=== PATIENT | female | born 1990 | race Caucasian/White ===

== ENCOUNTER 2020-02-21 18:04 | Emergency (ER) | payer MEDICAID, OTHER ==
[~2020-02-21] VITALS: Ht 157.5 cm; Wt 100.0 kg
[2020-02-21 18:36] VITALS: BP 150/77
[2020-02-21] MEDS ORDERED: fentaNYL PF VIAL 100 MCG/2 ML VIAL IVP ONE (20:00)
--- NOTE | 2020-02-21 20:01 | PHYS DOC ---
Past Medical History Past Medical History: No Pertinent History Past Surgical History: No Surgical History Smoking Status: Never Smoker Alcohol Use: None Drug Use: None General Adult EDM: Chief Complaint: COUGH HPI: HPI: Patient is a 29 year old female who presents with left chest sharp pain that started this afternoon. She states that it does get worse with movement of that left arm. She states the left arm feels heavy. She rates her pain a 7 out of 10. She states she does have anxiety and she has been having a lot of anxiety and stress lately. She states that her mom, her dad, and her brother all have COVID she is very worried and nervous about that. She stated that her began having cold-like symptoms and was tested but he was negative. She states she also has 2 small children at home. She states she is just very anxious and stressed lately. She does have alprazolam at home that she takes for her anxiety when needed. She states she did not take any today but she did take some yesterday and it does help. She rates her pain a 7 out of 10. Patient denies fever, nausea, vomiting, shortness of breath, headache, dizziness, vision changes, numbness or tingling, abdominal pain, back pain. Patient states she does have a cough but she has not been coughing up any mucus. She states she has no other past medical history and takes no other medications daily. She denies being a smoker. Review of Systems: Review of Systems: Constitutional: Denies fever or chills. [] Eyes: Denies change in visual acuity. [] HENT: Denies nasal congestion or sore throat. [] Respiratory: cough or denies shortness of breath. [] Cardiovascular: chest pain or denies edema. [] GI: Denies abdominal pain, nausea, vomiting, bloody stools or diarrhea. [] : Denies dysuria. [] Musculoskeletal: Denies back pain or joint pain. [] Integument: Denies rash. [] Neurologic: Denies headache, focal weakness or sensory changes. [] Endocrine: Denies polyuria or polydipsia. [] Lymphatic: Denies swollen glands. [] Psychiatric: Denies depression or anxiety. [] Heart Score: HEART Score for Chest Pain: HEART Score for Chest Pain Response (Comments) Value History Slighlty/Non-Suspicious 0 ECG Normal 0 Age < 45 0 Risk Factors 1 or 2 Risk Factors 1 Troponin < Normal Limit 0 Total 1 Risk Factors: Risk Factors: DM, Current or recent (<one month) smoker, HTN, HLP, family history of CAD, obesity. Risk Scores: Score 0 - 3: 2.5% MACE over next 6 weeks - Discharge Home Score 4 - 6: 20.3% MACE over next 6 weeks - Admit for Clinical Observation Score 7 - 10: 72.7% MACE over next 6 weeks - Early Invasive Strategies Current Medications: Current Medications Medications (Trade) Dose Ordered Sig/Mariela Start Time Stop Time Status Last Admin Dose Admin Fentanyl Citrate (Fentanyl 2ml Vial) 50 mcg 1X ONCE 02/21/20 20:00 02/21/20 20:01 Allergies: Allergies: Allergies Coded Allergies Type Severity Reaction Last Updated Verified Penicillins Allergy Intermediate rash 07/07/16 Yes Physical Exam: PE: Constitutional: Well developed, well nourished, no acute distress, non-toxic appearance. [] HENT: Normocephalic, atraumatic, bilateral external ears normal, oropharynx moist, no oral exudates, nose normal. [] Eyes: PERRLA, EOMI, conjunctiva normal, no discharge. [] Neck: Normal range of motion, no tenderness, supple, no stridor. [] Cardiovascular:Heart rate regular rhythm, no murmur [] Lungs & Thorax: Bilateral breath sounds clear to auscultation [] Abdomen: Bowel sounds normal, soft, no tenderness, no masses, no pulsatile masses. [] Skin: Warm, dry, no erythema, no rash. [] Back: No tenderness, no CVA tenderness. [] Extremities: No tenderness, no cyanosis, no clubbing, ROM intact, no edema. [] Neurologic: Alert and oriented X 3, normal motor function, normal sensory function, no focal deficits noted. [] Psychologic: Affect normal, judgement normal, mood normal. Normal physical exam [] Current Patient Data: Vital Signs: Vital Signs Date Time Temp Pulse Resp B/P (MAP) Pulse Ox O2 Delivery O2 Flow Rate FiO2 02/21/20 18:36 99.0 102 17 150/77 (101) 100 Room Air 99.0 EKG: EK and read by Dr Segura as sinus rhythm and no STEMI[] Radiology/Procedures: Radiology/Procedures: [] Impression: [facility] [address] [place] [address] IMAGING REPORT Signed PATIENT: KAPIL VARMA I ACCOUNT: [id number] : 1990 LOCATION: ER AGE: 29 SEX: F EXAM STATUS: PRE ER ORD. PHYSICIAN: ADAN RUELAS APRN REASON: cough PROCEDURE: PORTABLE CHEST 1V INDICATION: Reason: cough / Spl. Instructions: / History: COMPARISON: None. FINDINGS: Single view of chest obtained. Hypoexpanded exam without focal airspace consolidation. Cardiac silhouette is prominent in size. IMPRESSION: * No definite focal airspace consolidation. * Cardiac silhouette is prominent in size. Electronically signed by: Sergey Paulino MD (02/21/2020 8:25 PM) [id number] DICTATED and SIGNED BY: SERGEY PAULINO MD DATE: 02/21/202024 Course & Med Decision Making: Course & Med Decision Making Pertinent Labs and Imaging studies reviewed. (See chart for details) COVID-19 CRITERIA: The patient was evaluated during the global COVID-19 pandemic, and that diagnosis was suspected/considered upon their initial pre sentation. Their evaluation, treatment and testing was consistent with current guidelines for patients who present with complaints or symptoms that may be related to COVID-19. See HPI. Alert and oriented x4. Ambulatory with a steady gait. Lungs are clear to auscultation all lobes. Skin pink warm and dry. Speaks in full clear sentences. Vital signs within normal limits. Abdomen soft and nontender. No extremity edema. No calf tenderness. She is hemoglobin is 7.9 and she has a nemia. Patient states that when she was she did have to take iron. She states she does have heavy periods. Patient is not symptomatic. Patient will begin taking [id number] iron and Colace. She will follow-up with Dr. Metz for her heavy periods. I discussed this patient findings and care plan with Dr Segura. [] Lc Disclaimer: Dragfederico Disclaimer: This electronic medical record was generated, in whole or in part, using a voice recognition dictation system. Departure Departure Impression: Primary Impression: Anemia Qualified Codes: D64.9 - Anemia, unspecified Additional Impression: Nonspecific chest pain Disposition: HOME, SELF-CARE Condition: STABLE Referrals: ELIZABETH ROYAL MD (PCP) CHIN METZ Jr, MD Patient Instructions: Anemia, Nonspecific-Brief Additional Instructions: Follow-up with Dr. ying about your heavy periods. Begin taking over the counter iron as prescribed and take it with food. Take the stool softener such as colace also because iron can make you constipated. Remember that iron can also make your stools dark in color. Justicifation of Admission Dx: Justifications for Admission: Justification of Admission Dx: N/A COVID-19 Assessment: COVID-19 Patient Risks: Age 65 or older: No Sign of co-morbidity: Yes Exp to person + for COVID: No Exp to PUI: No Travel from affected area: No Lower respiratory symptoms: Yes Fever: No Other: No PPE Use: Full PPE with N95 mask or PAPR: Yes ADAN RUELAS COMPENSATION ANALYST Feb 21, 2020 20:01
--- NOTE | 2020-02-21 20:28 | RAD ---
INDICATION: Reason: cough / Spl. Instructions: / History: COMPARISON: None. FINDINGS: Single view of chest obtained. Hypoexpanded exam without focal airspace consolidation. Cardiac silhouette is prominent in size. IMPRESSION: * No definite focal airspace consolidation. * Cardiac silhouette is prominent in size. Electronically signed by: Kristopher Sagastume MD (02/21/2020 8:25 PM) [id number]
[2020-02-21 21:19] LABS: BASO # 0.1 x10^3/uL (0.0-0.2); BASO % 1 % (0-3); EOS # 0.1 x10^3/uL (0.0-0.7); EOS % 1 % (0-3); HEMATOCRIT 25.3 % (36.0-47.0); HEMOGLOBIN 7.9 g/dL (12.0-15.5); LYMPH # 2.3 x10^3/uL (1.0-4.8); LYMPH % 18 % (24-48); MEAN CORPUSCULAR HEMOGLOBIN 20 pg (25-35); MEAN CORPUSCULAR HGB CONC 31 g/dL (31-37); MEAN CORPUSCULAR VOLUME 63 fL (79-100); MONO # 0.4 x10^3/uL (0.0-1.1); MONO % 3 % (0-9); NEUT % 78 % (31-73); PLATELET COUNT 594 x10^3/uL (140-400); RED BLOOD COUNT 4.02 x10^6/uL (3.50-5.40); RED CELL DISTRIBUTION WIDTH 18.8 % (11.5-14.5); WHITE BLOOD COUNT 12.8 x10^3/uL (4.0-11.0)
[2020-02-21 21:23] LABS: CALCIUM 8.6 mg/dL (8.5-10.1); CREATININE 0.7 mg/dL (0.6-1.0); GFR 100.4; POTASSIUM 4.3 mmol/L (3.5-5.1); PROTHROMBIN TIME PATIENT 13.2 SEC (11.7-14.0)
[2020-02-21 21:29] LABS: ALBUMIN 3.3 g/dL (3.4-5.0); ALBUMIN/GLOBULIN RATIO 0.8 (1.0-1.7); TOTAL BILIRUBIN 0.1 mg/dL (0.2-1.0); TOTAL PROTEIN 7.7 g/dL (6.4-8.2)
[2020-02-21 21:44] LABS: ANISOCYTOSIS SLIGHT; HYPOCHROMIA MARKED; MICROCYTOSIS MARKED; PLT ESTIMATE INCREASED (ADEQUATE); POIKILOCYTOSIS SLIGHT
--- NOTE | 2020-02-22 14:30 | EKG ---
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
--- NOTE | 2020-02-24 10:18 | NUR ---
IP: Informed pt of negative COVID tests. Pt verbalized understanding.
== END 2020-02-22 00:19 | disposition home or self-care (01) ==
LOC: ER 18:04
DX: D64.9 Anemia, unspecified (principal); R07.89 Other chest pain; Z20.828 Contact with and (suspected) exposure to other viral communicable diseases; F41.9 Anxiety disorder, unspecified; F43.9 Reaction to severe stress, unspecified; Z88.0 Allergy status to penicillin
CPT/HCPCS: 36415; 71045; 80053; 84484; 85025; 85379; 85610; 93005; 96374; 99285; J3010; U0003

== ENCOUNTER 2020-02-28 05:58 | Emergency (ER) | payer MEDICAID ==
[~2020-02-28] VITALS: Ht 157.5 cm; Wt 100.0 kg
--- NOTE | 2020-02-28 07:01 | PHYS DOC ---
Past Medical History Past Medical History: No Pertinent History Past Surgical History: Cholecystectomy Smoking Status: Never Smoker Alcohol Use: None Drug Use: None General Adult EDM: Chief Complaint: Congestion HPI: HPI: Patient is a 29 year old female who presents with a one-week history of cough some mild shortness of breath myalgias mild diarrhea and then a 3 to 4-day history of loss of taste. Patient son was recently diagnosed with coronavirus. Patient states she has not had a fever. Symptoms are worse with coughing and exertion. Symptoms are described as moderate in severity. Symptoms are worse with deep breaths. Review of Systems: Review of Systems: Constitutional: Denies fever or chills. [] Eyes: Denies change in visual acuity. [] HENT: Reports nasal congestion Respiratory: Reports cough reports mild shortness of breath Cardiovascular: Reports mild] GI: Has nausea and mild diarrhea : Denies dysuria. [] Musculoskeletal: Complains of myalgias Integument: Denies rash. [] Neurologic: Has mild headache but no focal weakness or sensory changes. [] Endocrine: Denies polyuria or polydipsia. [] Lymphatic: Denies swollen glands. [] Psychiatric: Denies depression or anxiety. [] Heart Score: Risk Factors: Risk Factors: DM, Current or recent (<one month) smoker, HTN, HLP, family history of CAD, obesity. Risk Scores: Score 0 - 3: 2.5% MACE over next 6 weeks - Discharge Home Score 4 - 6: 20.3% MACE over next 6 weeks - Admit for Clinical Observation Score 7 - 10: 72.7% MACE over next 6 weeks - Early Invasive Strategies Allergies: Allergies: Allergies Coded Allergies Type Severity Reaction Last Updated Verified Penicillins Allergy Intermediate rash 07/07/16 Yes Physical Exam: PE: Constitutional: Well developed, well nourished, no acute distress, non-toxic appearance. [] HENT: Normocephalic, atraumatic, bilateral external ears normal, no trismus, mild nasal congestion nose normal. [] Eyes: PERRLA, EOMI, conjunctiva normal, no discharge. [] Neck: Normal range of motion, no tenderness, supple, no stridor. [] Cardiovascular:Heart rate regular rhythm, peripheral pulses intact, cap refill brisk Lungs & Thorax: Bilateral breath sounds clear, no respiratory distress Abdomen: , soft, no tenderness, no masses, no pulsatile masses. [] Skin: Warm, dry, no erythema, no rash. [] Back: No tenderness, no CVA tenderness. [] Extremities: No tenderness, no cyanosis, no clubbing, ROM intact, no edema. [] N egative Homans sign Neurologic: Alert and oriented X 3, normal motor function, normal sensory function, no focal deficits noted. [] Psychologic: Affect normal, judgement normal, mood normal. [] Current Patient Data: Vital Signs: Vital Signs Date Time Temp Pulse Resp B/P (MAP) Pulse Ox O2 Delivery O2 Flow Rate FiO2 02/28/20 06:43 98.8 80 20 113/51 (71) 97 Room Air 98.8 EKG: EKG: [] Radiology/Procedures: Radiology/Procedures: [][facility] [address] [place] [address] IMAGING REPORT Signed PATIENT: KAPIL VARMA I ACCOUNT: [id number] : 1990 LOCATION: ER AGE: 29 SEX: F EXAM STATUS: REG ER ORD. PHYSICIAN: DEMETRIUS HENRY MD REASON: cough PROCEDURE: PORTABLE CHEST 1V INDICATION: Reason: cough / Spl. Instructions: / History: COMPARISON: February 21, 2020 FINDINGS: Single view of chest obtained. Hypoexpanded exam. The cardiac silhouette is prominent but likely exaggerated by portable technique. No definite focal airspace consolidation or edema. IMPRESSION: * No focal airspace consolidation. Electronically signed by: Sergey Paulino MD (02/28/2020 7:35 AM) [id number] DICTATED and SIGNED BY: SERGEY PAULINO MD DATE: 02/28/20 0735 Course & Med Decision Making: Course & Med Decision Making Pertinent Labs and Imaging studies reviewed. (See chart for details) []COVID-19 CRITERIA: The patient was evaluated during the global COVID-19 pandemic, and that diagnosis was suspected/considered upon their initial presentation. Their evaluation, treatment and testing was consistent with current guidelines for patients who present with complaints or symptoms that may be related to COVID-19. perc score: 0 29-year-old female presents with symptoms consistent with COVID-19. Patient is PERC negative. Doubt pulmonary embolism. Chest x-ray clear. Discussed with patient isolation and return precautions. Patient stable for discharge outpatient follow-up Lc Disclaimer: Lc Disclaimer: This electronic medical record was generated, in whole or in part, using a voice recognition dictation system. Departure Departure Impression: Primary Impression: Viral syndrome Additional Impression: Suspected COVID-19 virus infection Disposition: HOME, SELF-CARE Condition: STABLE Referrals: ELIZABETH ROYAL MD (PCP) 2-3 days Patient Instructions: Viral Syndrome Additional Instructions: You have been tested for or diagnosed with COVID-19. It is an infection caused by a new type of coronavirus. COVID-19 will cause cold-like or mild flu symptoms in most. It can cause more severe symptoms like problems breathing in some. There is no treatment for COVID-19. The body will clear the infection over time. Self-care will help to ease discomfort. Steps to Take: Self-Care Rest as needed. Healthy habits may help you feel better. Steps include: Choose healthy foods including fruits and vegetables. Drink water throughout the day. Get plenty of sleep each night. If you smoke, try to quit. It may ease breathing. Avoid alcohol. Keep Others Healthy The virus can spread to others. Droplets are released every time you sneeze or cough. The droplets can get into the mouth, nose, or eyes of people near you and lead to infection. To lower the chances of spreading COVID-19 to others: Stay at home until your doctor has said it is safe to leave. If you tested positive this will mean staying isolated until both of the following are true: At least 7 days have passed since the start of illness. You are free of fever for at least 72 hours without the use of medicine. During this time: - Avoid public areas, events, or transportation. Do not return to work or school until your doctor has said it is safe to do so. - Call ahead if you need to go to a medical center. Let them know you may have COVID-19. It will help them guide you where to go. They may also ask you to wear a facemask when you come to the office. - If you call for emergency medical services, let them know you may have COVID- 19. While at home: - Try to avoid close contact with others. Stay about 6 feet away. - If possible, spend most of your time in a separate room from others. - Use a face mask if you will be in close contact with others such as sharing a room or vehicle. - Have someone wipe down common surfaces in the home. Use household customer service trainer every day on areas like doorknobs, counters, or sinks. - Cough or sneeze into a tissue. Throw the tissue away right after use. If a tissue is not available, cough or sneeze into your elbow. - Wash your hands often. Wash them after sneezing or coughing. Use soap and water and wash for at least 20 seconds. Alcohol based hand kiln cleaner can be used if soap and water is not available. - Do not prepare food for others. Avoid sharing personal items like forks, spoons, or toothbrushes. - Avoid close contact with pets while you are sick. There is no evidence of the virus passing to pets. This is a safety step until more is known about this virus. Isolation can be frustrating. Social interaction can help. Keep in touch with friends and family through phone and tech options. You can still interact with others in your home, just keep a safe distance of about 6 feet. Follow-up: Your doctors office will check in with you to see if there are any changes in your health. You may be asked to keep track of symptoms to share with them. They will also let you know when you are clear to be in public again. Problems to Look Out For: Contact your doctor if your recovery is not going as you expect. Get emergency c are if you have problems such as: - Trouble breathing - Nonstop chest pain or pressure - Changes in awareness, confusion, or problems waking - Lips or face have bluish color - Worsening of symptoms If you think you have an emergency, call for emergency medical services right away. As taken from [facility] Justicifation of Admission Dx: Justifications for Admission: Justification of Admission Dx: N/A DEMETRIUS HENRY MD Feb 28, 2020 07:00
--- NOTE | 2020-02-28 07:38 | RAD ---
INDICATION: Reason: cough / Spl. Instructions: / History: COMPARISON: February 21, 2020 FINDINGS: Single view of chest obtained. Hypoexpanded exam. The cardiac silhouette is prominent but likely exaggerated by portable technique. No definite focal airspace consolidation or edema. IMPRESSION: * No focal airspace consolidation. Electronically signed by: Kristopher Sagastume MD (02/28/2020 7:35 AM) [id number]
[2020-02-28 08:05] VITALS: BP 98/52
== END 2020-02-28 08:31 | disposition home or self-care (01) ==
LOC: ER 05:58
DX: U07.1 COVID-19 (principal); B34.9 Viral infection, unspecified; R06.02 Shortness of breath; R19.7 Diarrhea, unspecified; Z90.49 Acquired absence of other specified parts of digestive tract; Z88.0 Allergy status to penicillin
CPT/HCPCS: 71045; 99284; C9803; U0003

== ENCOUNTER → 2020-04-13 | Outpatient (CLI) | payer MEDICAID ==
--- NOTE | 2020-04-13 17:01 | RAD ---
EXAMINATION: PELVIS COMPLETE, 04/13/2020 4:00 PM CLINICAL INDICATION: Excessive menstruation TECHNIQUE: Grayscale, color and spectral Doppler ultrasound images of the pelvis via transabdominal and transvaginal approach. COMPARISON: None. FINDINGS: The uterus measures 10.0 x 6.4 x 5.1 cm. The endometrial stripe measures 3 mm in thickness. No myometrial mass. The right ovary measures 8.5 x 6.8 x 5.3 cm. There is a right ovarian cyst measuring 6.9 x 4.7 cm. This is anechoic. Some internal echoes at the superior margin of the cyst may be artifact. There is no internal vascularity.. Intact blood flow to the right ovary. The left ovary measures 4.9 x 2.7 x 2.4 cm. There is a left ovarian cyst measuring 3.0 x 1.7 cm. This appears anechoic. No internal vascularity.. Intact blood flow to the left ovary. No adnexal mass or free fluid. IMPRESSION: 1. Normal appearance of uterus. 2. 6.9 cm right ovarian cyst, likely a simple cyst. Some questionable internal echoes on some of the images are favored to be artifact. Follow-up ultrasound could be obtained in 8-12 weeks to ensure resolution and exclude complex or hemorrhagic cyst. 3. 3.0 cm simple left ovarian cyst. Electronically signed by: Rashida Doyle MD (04/13/2020 4:59 PM) [id number]
== END | disposition home or self-care (01) ==
LOC: US 15:54
PROVIDERS: ATTEND Obstetrics & Gynecology
DX: N83.292 Other ovarian cyst, left side (principal); N83.291 Other ovarian cyst, right side; N92.0 Excessive and frequent menstruation with regular cycle
CPT/HCPCS: 76856

== ENCOUNTER 2020-04-20 23:59 | Emergency (ER) | payer MEDICAID ==
[~2020-04-20] VITALS: Ht 157.5 cm; Wt 81.0 kg
[2020-04-21 02:00] VITALS: BP 111/58
--- NOTE | 2020-04-21 02:07 | PHYS DOC ---
Past Medical History Past Medical History: Other Additional Past Medical Histor: COVID 02/26 Past Surgical History: Cholecystectomy Smoking Status: Never Smoker Alcohol Use: None Drug Use: None General Adult EDM: Chief Complaint: SHORTNESS OF BREATH HPI: HPI: Patient is a 29 year old female who present to ER for evaluation of trouble breathing. Patient feels like something is in her throat that blocking no from breathing. Symptoms started tonight. Patient denies any chest pain, no cough, no fever. Patient denies any abdominal pain, no nausea vomiting. Patient was tested positive for COVID-19 in February. Patient denies any recent travel or operation, no history of blood clot disorder. Patient denies any recent surgery. Review of Systems: Review of Systems: Constitutional: Denies fever or chills. [] Eyes: Denies change in visual acuity. [] HENT: Denies nasal congestion or sore throat. [] Respiratory: Denies cough ,positive for trouble breathing. Cardiovascular: Denies chest pain or edema. [] GI: Denies abdominal pain, nausea, vomiting, bloody stools or diarrhea. [] : Denies dysuria. [] Musculoskeletal: Denies back pain or joint pain. [] Integument: Denies rash. [] Neurologic: Denies headache, focal weakness or sensory changes. [] Endocrine: Denies polyuria or polydipsia. [] Lymphatic: Denies swollen glands. [] Psychiatric: Denies depression or anxiety. [] Heart Score: Risk Factors: Risk Factors: DM, Current or recent (<one month) smoker, HTN, HLP, family history of CAD, obesity. Risk Scores: Score 0 - 3: 2.5% MACE over next 6 weeks - Discharge Home Score 4 - 6: 20.3% MACE over next 6 weeks - Admit for Clinical Observation Score 7 - 10: 72.7% MACE over next 6 weeks - Early Invasive Strategies Allergies: Allergies: Allergies Coded Allergies Type Severity Reaction Last Updated Verified Penicillins Allergy Intermediate rash 07/07/16 Yes Physical Exam: PE: Constitutional: Well developed, well nourished, no acute distress, non-toxic appearance. [] HENT: Normocephalic, atraumatic, bilateral external ears normal, oropharynx mo ist, no oral exudates, nose normal. [] Eyes: PERRLA, EOMI, conjunctiva normal, no discharge. [] Neck: Normal range of motion, no tenderness, supple, no stridor. [] Cardiovascular:Heart rate regular rhythm, no murmur [] Lungs & Thorax: Bilateral breath sounds clear to auscultation [] Abdomen: Bowel sounds normal, soft, no tenderness, no masses, no pulsatile masses. [] Skin: Warm, dry, no erythema, no rash. [] Back: No tenderness, no CVA tenderness. [] Extremities: No tenderness, no cyanosis, no clubbing, ROM intact, no edema. [] Neurologic: Alert and oriented X 3, normal motor function, normal sensory function, no focal deficits noted. [] Psychologic: Affect normal, judgement normal, mood normal. [] Current Patient Data: Vital Signs: Vital Signs Date Time Temp Pulse Resp B/P (MAP) Pulse Ox O2 Delivery O2 Flow Rate FiO2 04/21/20 00:12 98.2 70 18 145/84 (104) 100 Room Air 98.2 EKG: EKG: EKG was done at 045 heart rate 63 bpm, sinus rhythm, no ST segment elevation. Radiology/Procedures: Radiology/Procedures: [facility] [address] [place] [address] IMAGING REPORT Signed PATIENT: KAPIL VARMA I ACCOUNT: [id number] : 1990 LOCATION: ER AGE: 29 SEX: F EXAM STATUS: DEP ER ORD. PHYSICIAN: WENCESLAO GUEVARA DO REASON: COUGH, SOA PROCEDURE: CHEST AP ONLY EXAM: CHEST AP ONLY 04/21/2020 12:59 AM CLINICAL INDICATION: Cough, shortness of breath COMPARISON: Chest radiograph 02/28/2020 TECHNIQUE: AP upright view of the chest FINDINGS: The heart and mediastinum are normal. Lungs are well-expanded and clear. No consolidation, pleural effusion, or pneumothorax. Pulmonary vascularity is normal. The thoracic skeleton is intact. IMPRESSION: Normal chest radiograph. Electronically signed by: Rashida Doyle MD (04/21/2020 2:24 AM) [id number] DICTATED and SIGNED BY: RASHIDA DOYLE MD DATE: 04/21/20 0224 Course & Med Decision Making: Course & Med Decision Making Pertinent Labs and Imaging studies reviewed. (See chart for details) Patient is a 29-year-old female who presented to ER with trouble breathing, she felt like something in her throat and because of trouble breathing. Her EKG and chest x-ray was normal, her vital signs was normal, patient with talking without any problem her oxygen saturation 100% on room air. Patient may have an anxiety attack. Patient will be discharged home without any further work-up. [place] Disclaimer: Lc Disclaimer: This electronic medical record was generated, in whole or in part, using a voice recognition dictation system. Departure Departure Impression: Primary Impression: Acute dyspnea Disposition: 01 DC HOME SELF CARE/HOMELESS Condition: IMPROVED Referrals: NO PCP (PCP) Please follow up with your doctor as needed Patient Instructions: Shortness of Breath Additional Instructions: Thank you for visiting our Emergency Department. We appreciate you trusting us with your care. If any additional problems come up don't hesitate to return to visit us. Please follow up with your primary care provider so they can plan additional care if needed and know about the problem that you had. If symptoms worsen come back to the Emergency Department. Any concerning symptoms that start such as chest pain, shortness of air, weakness or numbness on one side of the body, running high fevers or any other concerning symptoms return to the ER. WENCESLAO GUEVARA DO Apr 21, 2020 02:07
--- NOTE | 2020-04-21 02:27 | RAD ---
EXAM: CHEST AP ONLY 04/21/2020 12:59 AM CLINICAL INDICATION: Cough, shortness of breath COMPARISON: Chest radiograph 02/28/2020 TECHNIQUE: AP upright view of the chest FINDINGS: The heart and mediastinum are normal. Lungs are well-expanded and clear. No consolidation, pleural effusion, or pneumothorax. Pulmonary vascularity is normal. The thoracic skeleton is intact. IMPRESSION: Normal chest radiograph. Electronically signed by: Rashida Doyle MD (04/21/2020 2:24 AM) [id number]
== END 2020-04-21 02:21 | disposition home or self-care (01) ==
LOC: ER 23:59
DX: R06.02 Shortness of breath (principal); Z88.0 Allergy status to penicillin
CPT/HCPCS: 71045; 99285

== ENCOUNTER → 2020-04-27 | Outpatient (CLI) | payer MEDICAID ==
[2020-04-21 02:00] VITALS: BP 111/58
--- NOTE | 2020-04-28 17:45 | NUR ---
IP: Talked with pt concerning her positive COVID test. Pt states she had it confirmed 2 months ago. Discussed how she can shed the virus for several weeks to months. Pt verbalized understanding.
== END ==
LOC: LAB 14:50
PROVIDERS: ATTEND Obstetrics & Gynecology
DX: U07.1 COVID-19 (principal)
CPT/HCPCS: U0003-CS

== ENCOUNTER 2020-07-31 00:34 | Emergency (ER) | payer MEDICAID ==
[~2020-07-31] VITALS: Ht 157.5 cm; Wt 90.0 kg
[2020-07-31 01:00] VITALS: BP 138/72
[2020-07-31] MEDS ORDERED: PROCHLORPERAZINE 5 MG TABLET. PO ONE (02:45)
[2020-07-31] MEDS ORDERED: IBUPROFEN 200 MG TABLET. PO ONE (02:45)
[2020-07-31] MEDS ORDERED: DEXAMETHASONE 4 MG TABLET PO ONE (02:45)
[2020-07-31 02:50] LABS: BILIRUBIN,URINE NEGATIVE (NEG); CLARITY,URINE CLEAR; COLOR,URINE YELLOW; NITRITE,URINE NEGATIVE (NEG); PH,URINE 6.5 (<5.0-8.0); PROTEIN,URINE NEGATIVE (NEG-TRACE); UROBILINOGEN,URINE 0.2 mg/dL (0.2 mg/dL)
[2020-07-31 02:55] LABS: BACTERIA,URINE 0 /HPF (0-FEW); RBC,URINE 0 /HPF (0-2); WBC,URINE RARE /HPF (0-4)
--- NOTE | 2020-07-31 05:04 | PHYS DOC ---
Past Medical History Past Medical History: Other Additional Past Medical Histor: COVID 02/26 Past Surgical History: Cholecystectomy Smoking Status: Never Smoker Alcohol Use: None Drug Use: None General Adult EDM: Chief Complaint: MULTIPLE COMPLAINTS HPI: HPI: 29 yo F past medical history of covid in 02/2020 presents to the ed with c/o generalized, nonfocal headache, cough, diffuse back pain and abdominal pain describes and cramping and aching for the past 3 days stating she feels tried and fatigued, asks "Can I get covid again?" No h/o migraines, does not characterize this headache is the worst headache of her life. Last menstrual period was 1 month ago. States she had vaginal spotting on June 25 but took a home test that was negative. Is tolerating food and drink and voiding spontaneously. Is having normal bowel movements. No history of IV drug use or neck stiffness. Review of Systems: Review of Systems: Constitutional: Denies fever or chills. [] Eyes: Denies change in visual acuity. [] HENT: Denies nasal congestion or sore throat. [] Respiratory: Denies dyspnea or hemoptysis Cardiovascular: Denies chest pain or edema. [] GI: Denies melena, hematochezia or hematemesis : Denies dysuria or hematuria Musculoskeletal: Denies joint swelling or deformity Integument: Denies rash or diaphoresis Neurologic: Denies neck stiffness, focal weakness or sensory changes. [] Endocrine: Denies polyuria or polydipsia. [] Lymphatic: Denies swollen glands. [] Psychiatric: Denies depression or anxiety. [] Heart Score: Risk Factors: Risk Factors: DM, Current or recent (<one month) smoker, HTN, HLP, family history of CAD, obesity. Risk Scores: Score 0 - 3: 2.5% MACE over next 6 weeks - Discharge Home Score 4 - 6: 20.3% MACE over next 6 weeks - Admit for Clinical Observation Score 7 - 10: 72.7% MACE over next 6 weeks - Early Invasive Strategies Current Medications: Current Medications Medications (Trade) Dose Ordered Sig/Mariela Start Time Stop Time Status Last Admin Dose Admin Dexamethasone (Decadron) 10 mg ONCE ONCE 07/31/20 02:45 07/31/20 02:46 DC 07/31/20 04:17 10 MG Ibuprofen (Motrin) 600 mg 1X ONCE 07/31/20 02:45 07/31/20 02:46 DC 07/31/20 04:18 600 MG Prochlorperazine Maleate (Compazine) 10 mg ONCE ONCE 07/31/20 02:45 07/31/20 02:46 DC 07/31/20 04:19 10 MG Allergies: Allergies: Allergies Coded Allergies Type Severity Reaction Last Updated Verified Penicillins Allergy Intermediate rash 07/07/16 Yes Physical Exam: PE: Constitutional: Well developed, well nourished, no acute distress, non-toxic appearance. HENT: Normocephalic, atraumatic, Eyes: EOMI, conjunctiva normal, no discharge. Neck: Normal range of motion, supple, Cardiovascular: S1/2 present, regular rhythm Lungs & Thorax: Speaking in full sentences, bilateral equal chest rise, no tachypnea or increased work of breathing Abdomen: soft, no tenderness, Skin: Warm, dry, no erythema, no rash. [] Back: No tenderness, right CVA tenderness on exam Extremities: No tenderness, no cyanosis, no edema Neurologic: Alert and oriented X 3, normal motor function, normal sensory function, no focal deficits noted. [] Psychologic: Affect normal, judgement normal, mood normal. [] Current Patient Data: Labs: Laboratory Tests Test 07/31/20 00:58 07/31/20 02:40 POC Urine HCG, Qualitative Hcg negative (Negative) Urine Collection Type Unknown Urine Color Yellow Urine Clarity Clear Urine pH 6.5 (<5.0-8.0) Urine Specific Rochelle 1.020 (1.000-1.030) Urine Protein Negative mg/dL (NEG-TRACE) Urine Glucose (UA) Negative mg/dL (NEG) Urine Ketones (Stick) Negative mg/dL (NEG) Urine Blood Negative (NEG) Urine Nitrite Negative (NEG) Urine Bilirubin Negative (NEG) Urine Urobilinogen Dipstick 0.2 mg/dL (0.2 mg/dL) Urine Leukocyte Esterase Negative (NEG) Urine RBC 0 /HPF (0-2) Urine WBC Rare /HPF (0-4) Urine Squamous Epithelial Cells Few /LPF Urine Bacteria 0 /HPF (0-FEW) Urine Mucus Slight /LPF Vital Signs: Vital Signs Date Time Temp Pulse Resp B/P (MAP) Pulse Ox O2 Delivery O2 Flow Rate FiO2 07/31/20 01:00 98.9 88 18 138/72 (94) 98 Room Air 98.9 EKG: EKG: [] Radiology/Procedures: Radiology/Procedures: [] Course & Med Decision Making: Course & Med Decision Making Pertinent Labs and Imaging studies reviewed. (See chart for details) COVID-19 CRITERIA: The patient was evaluated during the global COVID-19 pandemic, and that diagnosis was suspected/considered upon their initial presentation. Their evaluation, treatment and testing was consistent with current guidelines for patients who present with complaints or symptoms that may be related to COVID-19 Concern for multiple sxs, could represent viral/covid process vs uti infection, although pt is very well appearing, no flu-like or fatigued presentation. On reevaluation, headache resolved. Urinalysis showing no signs of infection. Covid test pending. Will discharge home with strict ED return precautions were given for neurologic deficits, chest pain, increased work of breathing, fever, or neck stiffness. Encouraged urgent outpatient follow-up with PMD and neurology if MARTIN should reoccur. Life-threatening processes were considered but are low suspicion at this time, given history, physical exam and ED workup. Pt was educated on all prescription medications and adverse effects. All patient's questions were answered and pt was stable at time of discharge. Life/limb-threatening differential includes but is not limited to, meningitis, encephalitis, intracranial hemorrhage, obstructive hydrocephaly, CVA, carbon monoxide poisoning, cerebral or cavernous venous thrombosis, hypertensive emergency, preeclampsia, giant cell arteritis, glaucoma, carotid or vertebral artery dissection, superior vena cava syndrome, infection, optic neuritis, or space-occupying lesions. I spoken with the patient and her caregivers. I explained the patient's condition, diagnoses and treatment plan based on the information available to me at this time. I have answered the patient and her caregiver's questions and addressed any concerns. The patient and her caregivers have a good understanding of patient's diagnosis, condition and treatment plan as can be expected at this point. Vital signs have been stable. Patient's condition is stable and appropriate for discharge from the emergency department. Patient will pursue further outpatient evaluation with primary care physician or other designated or consulting physician as outlined in the discharge instructions. The patient and/or caregivers are agreeable to this plan of care and follow-up instructions have been explained in detail. The patient and/or c aregivers have received these instructions in written form and have expressed an understanding of the discharge instructions. The patient and/or caregivers are aware that any significant change of condition or worsening of symptoms should prompt immediate return to this or the closest emergency department or call to 911. Lc Disclaimer: Lc Disclaimer: This electronic medical record was generated, in whole or in part, using a voice recognition dictation system. Departure Departure Impression: Primary Impression: Person under investigation for COVID-19 Additional Impression: Headache Disposition: 01 DC HOME SELF CARE/HOMELESS Condition: STABLE Referrals: NO PCP (PCP) FOLLOW UP WITH FAMILY MEDICINE: Family Medicine Address: [address] [facility], [facility] [address] [place] [address] Patient Instructions: General Headache Without Cause Additional Instructions: FOLLOW UP WITH NEUROLOGY: [facility] Address: [address], [facility] [address] [place] [address] You have been tested for or diagnosed with COVID-19. It is an infection caused by a new type of coronavirus. COVID-19 will cause cold-like or mild flu symptoms in most. It can cause more severe symptoms like problems breathing in some. There is no treatment for COVID-19. The body will clear the infection over time. Self-care will help to ease discomfort. Steps to Take: Self-Care Rest as needed. Healthy habits may help you feel better. Steps include: Choose healthy foods including fruits and vegetables. Drink water throughout the day. Get plenty of sleep each night. If you smoke, try to quit. It may ease breathing. Avoid alcohol. Keep Others Healthy The virus can spread to others. Droplets are released every time you sneeze or cough. The droplets can get into the mouth, nose, or eyes of people near you and lead to infection. To lower the chances of spreading COVID-19 to others: Stay at home until your doctor has said it is safe to leave. If you tested positive this will mean staying isolated until both of the following are true: At least 7 days have passed since the start of illness. You are free of fever for at least 72 hours without the use of medicine. During this time: - Avoid public areas, events, or transportation. Do not return to work or [employer] until your doctor has said it is safe to do so. - Call ahead if you need to go to a medical center. Let them know you may have COVID-19. It will help them guide you where to go. They may also ask you to wear a facemask when you come to the office. - If you call for emergency medical services, let them know you may have COVID- 19. While at home: - Try to avoid close contact with others. Stay about 6 feet away. - If possible, spend most of your time in a separate room from others. - Use a face mask if you will be in close contact with others such as sharing a room or vehicle. - Have someone wipe down common surfaces in the home. Use household security sales manager every day on areas like doorknobs, counters, or sinks. - Cough or sneeze into a tissue. Throw the tissue away right after use. If a tissue is not available, cough or sneeze into your elbow. - Wash your hands often. Wash them after sneezing or coughing. Use soap and water and wash for at least 20 seconds. Alcohol based hand brass cleaner can be used if soap and water is not available. - Do not prepare food for others. Avoid sharing personal items like forks, spoons, or toothbrushes. - Avoid close contact with pets while you are sick. There is no evidence of the virus passing to pets. This is a safety step until more is known about this virus. Isolation can be frustrating. Social interaction can help. Keep in touch with fr iends and family through phone and tech options. You can still interact with others in your home, just keep a safe distance of about 6 feet. Follow-up: Your doctors office will check in with you to see if there are any changes in your health. You may be asked to keep track of symptoms to share with them. They will also let you know when you are clear to be in public again. Problems to Look Out For: Contact your doctor if your recovery is not going as you expect. Get emergency care if you have problems such as: - Trouble breathing - Nonstop chest pain or pressure - Changes in awareness, confusion, or problems waking - Lips or face have bluish color - Worsening of symptoms If you think you have an emergency, call for emergency medical services right away. As taken from [facility],KILEY Khan DO Jul 31, 2020 05:04
--- NOTE | 2020-08-01 13:59 | NUR ---
IP: Informed pt of negative COVID test. Pt verbalized understanding.
== END 2020-07-31 06:25 | disposition home or self-care (01) ==
LOC: ER 00:34
DX: R51.9 Headache, unspecified (principal); Z20.822 Contact with and (suspected) exposure to COVID-19; Z90.49 Acquired absence of other specified parts of digestive tract; Z88.0 Allergy status to penicillin
CPT/HCPCS: 81001; 81025; 99284; C9803; Q0164; U0003

== ENCOUNTER 2021-02-11 03:31 | Emergency (ER) | payer MEDICAID ==
[~2021-02-11] VITALS: Ht 157.5 cm; Wt 90.9 kg
[2021-02-11] MEDS ORDERED: CLINDAMYCIN HCL 150 MG CAPSULE. PO ONE (04:00)
[2021-02-11] MEDS ORDERED: DEXAMETHASONE 4 MG TABLET PO ONE (04:00)
[2021-02-11 04:11] VITALS: BP 131/80
--- NOTE | 2021-02-11 04:16 | ED.ADGEN ---
Past Medical History Past Medical History: Other Additional Past Medical Histor: COVID 02/26 Past Surgical History: Cholecystectomy Smoking Status: Never Smoker Alcohol Use: None Drug Use: None General Adult EDM: Chief Complaint: SORE THROAT HPI: HPI: Patient is a 30 year old female coming in for throat pain and right ear pain with talking. Patient states has been going for 4 days and gradually getting worse. States she has had difficulty swallowing secondary to pain. Denies any fevers. Received her second Covid vaccine 1 week ago. Denies any difficulty managing secretions. Review of Systems: Review of Systems: All other systems within normal limits except for as noted in the HPI Current Medications: Current Medications Medications (Trade) Dose Ordered Sig/Mariela Start Time Stop Time Status Last Admin Dose Admin Clindamycin HCl (Cleocin) 450 mg 1X ONCE 02/11/21 04:00 02/11/21 04:01 DC 02/11/21 04:18 450 MG Dexamethasone (Decadron) 10 mg 1X ONCE 02/11/21 04:00 02/11/21 04:01 DC 02/11/21 04:19 10 MG Allergies: Allergies: Allergies Coded Allergies Type Severity Reaction Last Updated Verified Penicillins Allergy Intermediate rash 07/07/16 Yes Physical Exam: PE: Constitutional: Well developed, well nourished, no acute distress, non-toxic appearance. [] HENT: Normocephalic, atraumatic, bilateral external ears normal, canals and TMs normal, nose normal.. Erythema of oropharynx with symmetrically swollen tonsils, no uvular shift. [] Eyes: PERRLA, conjunctiva normal, no discharge. [] Neck: No rigidity, supple, no stridor. No cervical lymphadenopathy [] Cardiovascular: Regular rate and rhythm, brisk cap refill [] Lungs & Thorax: Non labored symmetric respirations, no tachypnea or respiratory distress [] Abdomen: Soft, nondistended. Skin: Warm, dry, no erythema, no rash. [] Back: Unremarkable Extremities: No deformities, range of motion grossly intact, no lower extremity edema [] Neurologic: Alert and oriented X 3, no focal deficits noted. [] Psychologic: Affect normal, judgement normal, mood normal. [] Current Patient Data: Labs: Laboratory Tests Test 02/11/21 03:44 POC Urine HCG, Qualitative Hcg negative (Negative) Vital Signs: Vital Signs Date Time Temp Pulse Resp B/P (MAP) Pulse Ox O2 Delivery O2 Flow Rate FiO2 02/11/21 04:11 87 18 131/80 (97) 98 Room Air 02/11/21 03:40 98.6 98.6 EKG: EKG: [] Heart Score: C/O Chest Pain: No Risk Factors: Risk Factors: DM, Current or recent (<one month) smoker, HTN, HLP, family his tory of CAD, obesity. Risk Scores: Score 0 - 3: 2.5% MACE over next 6 weeks - Discharge Home Score 4 - 6: 20.3% MACE over next 6 weeks - Admit for Clinical Observation Score 7 - 10: 72.7% MACE over next 6 weeks - Early Invasive Strategies Radiology/Procedures: Radiology/Procedures: [] Course & Med Decision Making: Course & Med Decision Making Pertinent Labs and Imaging studies reviewed. (See chart for details) [] Dragon Disclaimer: Dragon Disclaimer: This electronic medical record was generated, in whole or in part, using a voice recognition dictation system. Departure Departure Impression: Primary Impression: Acute infective tonsillitis Disposition: HOME / SELF CARE / HOMELESS Condition: STABLE Referrals: NO PCP (PCP) Patient Instructions: Viral and Bacterial Pharyngitis Scripts Clindamycin Hcl (CLINDAMYCIN HCL) 150 Mg Capsule 450 MG PO TID for antibiotic for 10 Days, #90 CAP Prov: NIKKI CAMPOS MD 02/11/21 NIKKI CAMPOS MD Feb 11, 2021 04:16
[2021-02-11] MEDS ORDERED: CLIN150C16 PO (04:45)
== END 2021-02-11 04:50 | disposition home or self-care (01) ==
LOC: ER 03:31
DX: J03.90 Acute tonsillitis, unspecified (principal); H92.01 Otalgia, right ear; Z88.0 Allergy status to penicillin
CPT/HCPCS: 81025; 87070; 87880; 99283

== ENCOUNTER 2021-07-12 02:39 | Emergency (ER) | payer MEDICAID ==
[~2021-07-12] VITALS: Ht 157.5 cm; Wt 90.9 kg
[~2021-07-12 02:39] MED LIST: CLIN150C16 PO
[2021-07-12 03:02] VITALS: BP 141/70
--- NOTE | 2021-07-12 03:23 | PHYS DOC ---
Past Medical History Past Medical History: Other Additional Past Medical Histor: COVID 02/26 Past Surgical History: Cholecystectomy Smoking Status: Never Smoker Alcohol Use: None Drug Use: None General Adult EDM: Chief Complaint: BACK PAIN - NO INJURY HPI: HPI: Patient is a 30-year-old female who presents to the ED with left-sided back pain. Patient states the pain first began about a month ago she does not know any inciting incident, but says that it was tolerable until about a week ago when she said it started getting worse and has been getting worse ever since. It flared up even worse today when she could not lay flat and has trouble with movement. She states she has usually been taking Tylenol and ibuprofen which have not been responding the past couple of days. She rates the pain as a 9/10. She says the pain is a sharp stabbing pain that goes down the back of the leg. Denies loss of bowel or bladder. Denies . Denies fever chills. Denies dysuria or hematuria. Denies rash. Review of Systems: Review of Systems: Constitutional: Denies fever or chills Eyes: Denies redness or eye pain HENT: Denies nasal congestion or sore throat Respiratory: Denies cough or shortness of breath Cardiovascular: Denies chest pain or palpitations GI: Denies abdominal pain, nausea, or vomiting : Denies dysuria or hematuria Musculoskeletal: Endorses back pain, denies joint pain Integument: Denies rash or skin lesions Neurologic: Denies headache, focal weakness or sensory changes; denies loss of bowel or bladder Complete systems were reviewed and found to be within normal limits, except as documented in this note. Heart Score: C/O Chest Pain: N/A Allergies: Allergies: Allergies Coded Allergies Type Severity Reaction Last Updated Verified Penicillins Allergy Intermediate rash 07/07/16 Yes Physical Exam: PE: Constitutional: Well developed, well nourished, in obvious pain, non-toxic appe arance HENT: Normocephalic, atraumatic Eyes: Conjunctiva normal, no discharge Neck: Normal range of motion, no tenderness, supple Lungs & Thorax: No respiratory distress, equal chest rise and fall Abdomen: Soft, no tenderness Skin: Warm, dry, no erythema, no rash Back: No midline tenderness, left low lumbar paraspinal tenderness, no CVA tenderness Extremities: Left lower extremity tenderness to posterior thigh down to calf, no numbness or paresthesias Neurologic: Alert and oriented X 3, no focal deficits noted Psychologic: Affect normal, judgment normal Current Patient Data: Vital Signs: Vital Signs Date Time Temp Pulse Resp B/P (MAP) Pulse Ox O2 Delivery O2 Flow Rate FiO2 07/12/21 03:02 97.9 88 16 141/70 (93) 98 Room Air 97.9 EKG: EKG: [] Radiology/Procedures: Radiology/Procedures: [] Course & Med Decision Making: Course & Med Decision Making Patient is a 30-year-old female who presents to the ED with back pain with sciatic component. Patient states this pain has been going on for a month but has increased the past week with with peak amount of pain being in the last day. Patient has been controlling the pain with Tylenol and ibuprofen [id number]. Due to the patient's physical exam showing no acute emergent processes, we are not suspecting any fracture or dislocation. We are going to discharge the patient home after giving a shot of IM Toradol, oral steroid, and prescribing patches, continue steroid, and muscle relaxer for symptomatic treatment. We have instructed the patient to begin RICE protocol. Patient stable for discharge with outpatient follow-up with PCP/pain management. Pain management referral provided. Discussed findings and plan with patient, who acknowledges understanding and agreement. Lc Disclaimer: Lc Disclaimer: This electronic medical record was generated, in whole or in part, using a voice recognition dictation system. Departure Departure Impression: Primary Impression: Low back pain Qualified Codes: M54.42 - Lumbago with sciatica, left side Disposition: 01 HOME / SELF CARE / HOMELESS Condition: STABLE Referrals: NO PCP (PCP) SAMIR RODRIGUEZ MD Patient Instructions: Back Pain, Adult, [id number], Sciatica, [id number] Additional Instructions: Ice area of discomfort 20 minutes on and leave off for next 20 minutes. Repeat several times daily for the next 2 days. After may introduce heat. You may also use [id number] ibuprofen and or Tylenol for pain or discomfort. Scripts Lidocaine (Lidocaine PATCH ) 1 Each Adh..patch 1 EACH TP DAILY for FOR LOCAL PAIN, #30 PATCH REMOVE AFTER 12 HOURS Prov: FRED SUN DO 07/12/21 Prednisone (PREDNISONE) 20 Mg Tablet 2 TAB PO DAILY for 4 Days, #8 TAB Start this prescription tomorrow, Monday07/13/21 Prov: FRED SUN DO 07/12/21 Orphenadrine Citrate (ORPHENADRINE CITRATE) 100 Mg Tablet.er 100 MG PO BID PRN for MUSCLE PAIN, #14 TAB Prov: FRED SUN DO 07/12/21 FRED SUN DO Jul 12, 2021 03:23
[2021-07-12] MEDS ORDERED: LIDO700A21 TP (03:36)
[2021-07-12] MEDS ORDERED: ORPH100T PO (03:36)
[2021-07-12] MEDS ORDERED: PRED20TA PO (03:36)
[2021-07-12] MEDS ORDERED: DEXAMETHASONE 4 MG TABLET PO ONE (04:00)
[2021-07-12] MEDS ORDERED: KETOROLAC 30 MG/ML VIAL. IM ONE (04:00)
== END 2021-07-12 03:45 | disposition home or self-care (01) ==
LOC: ER 02:39
DX: M54.42 Lumbago with sciatica, left side (principal); Z88.0 Allergy status to penicillin
CPT/HCPCS: 96372; 99283; J1885

== ENCOUNTER 2021-08-29 02:23 | Emergency (ER) | payer MEDICAID ==
[~2021-08-29] VITALS: Ht 157.5 cm; Wt 90.9 kg
[~2021-08-29 02:23] MED LIST changes: +LIDO700A21 TP; +ORPH100T PO; +PRED20TA PO
[2021-08-29 02:53] VITALS: BP 115/81
[2021-08-29] MEDS ORDERED: METH-561 PO (03:19)
[2021-08-29] MEDS ORDERED: LIDO1ADH78 TP (03:19)
--- NOTE | 2021-08-29 03:20 | PHYS DOC ---
Past Medical History Past Medical History: Other Additional Past Medical Histor: COVID 02/26 Past Surgical History: Cholecystectomy Smoking Status: Never Smoker Alcohol Use: None Drug Use: None General Adult EDM: Chief Complaint: BACK PAIN OR INJURY HPI: HPI: 30 yo F with no significant past medical history, presents the ED with complaints of left-sided low back pain that radiates into her buttock, steered down her leg to her left ankle for the past week. Patient reports the symptoms started in July after walking on the treadmill. Resolved after 2 weeks but has returned. Symptoms exacerbated with prolonged standing. Has not taken any [id number] medications for pain. Denies any heavy lifting, fall or prior back injury. 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 Has no routine primary care physician. Takes no routinely prescribed medications. Denies any history of trauma, history of IV drug use, history of cancer, history of malignancy, history of immunocompromise state, neurologic complaints including saddle anesthesia, weakness or paresthesias, urinary retention, bowel or bladder incontinence, night pain, fever/chills/night sweats, unexplained weight loss, anticoagulants or coagulopathy, prolonged steroid use, older age, presence of contusions or abrasions. Review of Systems: Review of Systems: Constitutional: Denies fever or chills. [] Eyes: Denies change in visual acuity. [] HENT: Denies nasal congestion or sore throat. [] Respiratory: Denies cough or shortness of breath. [] Cardiovascular: Denies chest pain or edema. [] GI: Denies nausea or vomiting : Denies saddle anesthesia or incontinence Musculoskeletal: Denies midline back pain or joint pain. [] Integument: Denies rash or diaphoresis Neurologic: Denies headache, focal weakness or sensory changes. [] Endocrine: Denies polyuria or polydipsia. [] Lymphatic: Denies swollen glands. [] Psychiatric: Denies depression or anxiety. [] Heart Score: C/O Chest Pain: No Risk Factors: Risk Factors: DM, Current or recent (<one month) smoker, HTN, HLP, family history of CAD, obesity. Risk Scores: Score 0 - 3: 2.5% MACE over next 6 weeks - Discharge Home Score 4 - 6: 20.3% MACE over next 6 weeks - Admit for Clinical Observation Score 7 - 10: 72.7% MACE over next 6 weeks - Early Invasive Strategies Allergies: Allergies: Allergies Coded Allergies Type Severity Reaction Last Updated Verified Penicillins Allergy Intermediate rash 07/07/16 Yes Physical Exam: PE: Constitutional: Well developed, well nourished, no acute distress, non-toxic appearance, obese HENT: Normocephalic, atraumatic, Eyes: EOMI, conjunctiva normal, no discharge. Neck: Normal range of motion, supple, Cardiovascular: S1/2 present, regular rhythm Lungs & Thorax: Speaking in full sentences, bilateral equal chest rise, no tachypnea or increased work of breathing Skin: Warm, dry, no erythema, no rash. [] Back: No midline spinal step-offs or tenderness, reports pain over left SI joint, straight leg positive on left, no CVA tenderness. [] Extremities: No tenderness, no cyanosis, no lower extremity edema Neurologic: Alert and oriented X 3, normal motor function, normal sensory function, no focal deficits noted. [] Psychologic: Affect normal, judgement normal, mood normal. [] Current Patient Data: Vital Signs: Vital Signs Date Time Temp Pulse Resp B/P (MAP) Pulse Ox O2 Delivery O2 Flow Rate FiO2 08/29/21 02:53 98.5 94 18 115/81 (92) 99 Room Air 98.5 EKG: EKG: [] Radiology/Procedures: Radiology/Procedures: [] Course & Med Decision Making: Course & Med Decision Making Pertinent Labs and Imaging studies reviewed. (See chart for details) Encounter for left lower extremity radiculopathy, suspected sciatica the absence of any blunt trauma, falls or injury-likely exacerbated with physical activity. Prescribed lidocaine patches and muscle relaxers. Patient advised to not drink alcohol, take other sedatives or operate heavy machinery with muscle relaxers. Will discharge home with strict ED return precautions were given for anesthesia, incontinence neurologic deficit. Encouraged urgent outpatient follow-up with PMD for routine care, consider orthopedic surgery for definitive management of sciatica. Life-threatening processes were considered but are low suspicion at this time, given history, physical exam and ED workup. Pt was educated on all prescription medications and adverse effects. All patient's questions were answered and pt was stable at time of discharge. Life/limb-threatening differential includes but is not limited to, aortic dissection/aneurysm, cauda equina syndrome, transverse myelitis, spinal cord/epidural compression syndromes, discitis, spinal stenosis, epidural abscess or hematoma, osteomyelitis, disc herniation, surgical abdomen, stable or unstable fracture, renal/ureteral colic, sepsis, meningitis, musculoskeletal injury, traumatic injury, intraabdominal/retroperitoneal or pelvic bleeding. I have spoken with the patient and/or caregivers. I explained the patient's condition, diagnoses and treatment plan based on the information available to me at this time. I have answered the patient and/or caregiver's questions and addressed any concerns. The patient and/or caregivers have a good understanding of patient's diagnosis, condition and treatment plan as can be expected at this point. Vital signs have been stable. Patient's condition is stable and appropriate for discharge from the emergency department. Patient will pursue further outpatient evaluation with primary care physician or other designated or consulting physician as outlined in the discharge instructions. The patient and/or caregivers are agreeable to this plan of care and follow-up instructions have been explained in detail. The patient and/or caregivers have received these instructions in written form and have expressed an understanding of the discharge instructions. The patient and/or caregivers are aware that any significant change of condition or worsening of symptoms should prompt immediate return to this or the closest emergency department or call to 911. Lc Disclaimer: Lc Disclaimer: This electronic medical record was generated, in whole or in part, using a voice recognition dictation system. Departure Departure Impression: Primary Impression: Low back pain Additional Impression: Left sided sciatica Disposition: 01 HOME / SELF CARE / HOMELESS Condition: STABLE Referrals: NO PCP (PCP) Follow-up with your primary care physician in 24 to 48 hours OR FOLLOW UP WITH FAMILY MEDICINE: [address] [facility], [address] [place] [address] Patient Instructions: Back Pain, Adult, Sciatica Additional Instructions: FOLLOW UP WITH ORTHOPEDICS: FOR DEFINITIVE MANAGEMENT of back pain Orthopaedic Surgery [address] [facility], [address] [place] [address] EMERGENCY DEPARTMENT GENERAL DISCHARGE INSTRUCTIONS Thank you for coming to [facility] Emergency Department (ED) today and trusting us with you care. We trust that you had a positive experience in our Emergency Department. If you wish to speak to the department management, you may call the Director at [phone]. YOUR FOLLOW UP INSTRUCTIONS ARE FOLLOWS: 1. Do you have a private Doctor? If you do not have a private doctor, please ask for a resource list of physicians or clinics that may be able to assist you with follow up care. 2. The Emergency Physicain has interpreted your x-rays. The X-Ray specialist will also review them. If there is a change in the findings, you will be notified in 48 hours when at all possible. 3. A lab test or culture has been done, your results will be reviewed and you will be notified if you need a change in treatment. ADDITIONAL INSTRUCTIONS AND INFORMATION: 1. Your care today has been supervised by a physician who is specially trained in emergency care. Many problems require more than one evaluation for a complete diagnosis and treatment. We recommend that you schedule your follow up appointment as recommended to ensure complete treatment of you illness or injury. If you are unable to obtain follow up care and continue to have a problem, or if your condition worsens, we recommend that you return to the ED. 2. We are not able to safely determine your condition over the phone nor are we able to give sound medical advice over the phone. For these safety reasons, if you call for medical advice we will ask you to come to the ED for further evaluation. 3. If you have any questions regarding these discharge instructions please call the ED at [phone]. SAFETY INFORMATION: In the interest of safety, wellness, and injury prevention; we encourage you to wear your sealbelt, if you smoke; quite smoking, and we encourage family to use a protective helmet for bicycling and other sporting events that present an increased risk for head injury. IF YOUR SYMPTOMS WORSEN OR NEW SYMPTOMS DEVELOP, OR YOU HAVE CONCERNS ABOUT YOUR CONDITION; OR IF YOUR CONDITION WORSENS WHILE YOU ARE WAITING FOR YOUR FOLLOW UP APPOINTMENT; EITHER CONTACT YOUR PRIMARY CARE DOCTOR, THE PHYSICIAN WHOSE NAME AND NUMBER YOU WERE GIVEN, OR RETURN TO THE ED IMMEDIATELY. Scripts Methocarbamol (METHOCARBAMOL) 500 Mg Tablet 500 MG PO QID for back pain, #30 TAB Prov: KILEY PALMA DO 08/29/21 Lidocaine (Lido Sukhjinder) 1 Each Adh..patch 1 EACH TP DAILY for 5 Days, #5 PATCH Apply 1 patch for 12 hours, remove for another 12 hours. May repeat, 1 patch per day as instructed above. Prov: KILEY PALMA DO 08/29/21 [facility] Aug 29, 2021 03:20
== END 2021-08-29 03:30 | disposition home or self-care (01) ==
LOC: ER 02:23
DX: M54.42 Lumbago with sciatica, left side (principal); Z90.49 Acquired absence of other specified parts of digestive tract; Z88.0 Allergy status to penicillin
CPT/HCPCS: 99283